=== PATIENT | male | born 1985 | race Caucasian/White ===

== ENCOUNTER → 2017-11-17 | Outpatient (REF) | payer OTHER | LOC: M LAB REF 17:44 | DX: D17.1 Benign lipomatous neoplasm of skin and subcutaneous tissue of trunk (principal) ==

== ENCOUNTER → 2017-12-26 | Outpatient (REF) | payer OTHER | LOC: M LAB REF 13:54 | DX: Z30.2 Encounter for sterilization (principal) ==

== ENCOUNTER → 2018-02-21 | Outpatient (REF) | payer OTHER ==
[2018-02-21 13:57] LABS: IMMOTILE SPERM ABSENT (ABSENT); MOTILE SPERM ABSENT (ABSENT); SEMEN APPEARANCE OPAQUE (OPAQUE); SEMEN VISCOSITY LIQUID (LIQUID); SEMEN pH 8.5 (7.0-8.0); WBC CONCENTRATION <=1 M/ml (<=1 M/ml)
[2018-02-21 13:58] LABS: IMMMOTILE SPERM CENTRIFUGED ABSENT (ABSENT); MOTILE SPERM CENTRIFUGED ABSENT (ABSENT)
== END ==
LOC: M LAB REF 13:07
DX: Z30.2 Encounter for sterilization (principal)

== ENCOUNTER → 2019-09-25 | Outpatient (CLI) | payer BC, OTHER | LOC: M LABSMTC 10:06 | PROVIDERS: ATTEND Family Medicine | DX: Z11.59 Encounter for screening for other viral diseases (principal); Z20.828 Contact with and (suspected) exposure to other viral communicable diseases ==

== ENCOUNTER 2021-03-06 12:05 | Emergency (ER) | payer BC, OTHER ==
[~2021-03-06] VITALS: Ht 175.3 cm; Wt 90.4 kg
[2021-03-06] MEDS ORDERED: BOOSTRIX/ADACEL VACCINE (DIPHTH/PERTUSS/ACELL/TETANUS) 0.5ML SYR IM ONE (14:45)
[2021-03-06] MEDS ORDERED: CIPR-249 PO (14:48)
--- NOTE | 2021-03-06 15:30 | REP ---
INDICATION: puncture through boot COMPARISON: None. TECHNIQUE: Four views left foot. FINDINGS: There is no evidence of acute fracture, dislocation, or intrinsic bone disease.No radiopaque foreign body is seen in the soft tissues. IMPRESSION: No fracture or dislocation. <Electronically signed by Jorge Hood > 03/06/21 [id number]
[2021-03-06 16:18] VITALS: BP 140/90
== END 2021-03-06 16:21 | disposition home or self-care (01) ==
LOC: M ED 12:05
DX: S91.332A Puncture wound without foreign body, left foot, initial encounter (principal); W26.8XXA Contact with other sharp object(s), not elsewhere classified, initial encounter; Y99.0 Civilian activity done for income or pay; Y92.9 Unspecified place or not applicable; Y93.9 Activity, unspecified

== ENCOUNTER → 2022-11-24 | Outpatient (REF) | payer OTHER, BC ==
[~2022-11-24] MED LIST: CIPR-249 PO
[2022-11-26 08:12] LABS: LDL DIRECT 133 mg/dL (0-99)
== END ==
LOC: M LAB REF 16:11
PROVIDERS: ATTEND Internal Medicine
DX: E78.5 Hyperlipidemia, unspecified (principal)